=== PATIENT | female | born 1945 | race Two or more races ===

== ENCOUNTER 2019-01-27 06:00 | Day surgery (SDC) | payer OTHER ==
[~2019-01-27 06:00] MED LIST: ACID CONTROLLER20 MG; ALENDRONATE SOD70 MG; ALL DAY ALLERGY10 M3; BASE B,POLYETHYL1 GM; DIALYVITE 800-1 EACH; NAPROXEN SODIU500 M1; SYNTHROID50 MCG; VITAMINA D3
[2019-01-27] MEDS ORDERED: ULTRACET PO (10:26)
[2019-01-27] MEDS ORDERED: MACROBID 100 M100 MG PO (10:26)
== END 2019-01-27 12:50 | disposition home or self-care (01) ==
LOC: CIR.AMB 06:00
DX: N81.11 Cystocele, midline (principal)